=== PATIENT | male | born 1965 | race Caucasian/White ===

== ENCOUNTER 2017-12-19 08:40 | Emergency (ER) | payer OTHER ==
[2017-12-19 08:45] VITALS: BP 117/78; BMI 25.0
--- NOTE | 2017-12-19 09:04 | PDOC ---
History of Present Illness - General Chief Complaint: Cold Symptoms Stated Complaint: FEVER, COUGH Time Seen by Provider: 12/19/17 08:51 History Source: Patient Exam Limitations: No Limitations - History of Present Illness Initial Comments: CHIEF COMPLAINT: 52 y/o febrile, tachycardic male c/o body aches, fever, chills , dry cough and sore throat x 4 days. HISTORY OF PRESENT ILLNESS: The patient states the sxs started out of nowhere. He did not have the flu shot this year. He has been taking tylenol and motrin , but hasn't taken anything this morning. He denies CP, SOB, abd pain, n/v/d. Vital signs on arrival are notable for pulse of 102 secondary to temp 100.9. REVIEW OF SYSTEMS: GENERAL/CONSTITUTIONAL: +fever/chills. No weakness. No weight change. HEAD, EYES, EARS, NOSE AND THROAT: No change in vision. No ear pain or discharge. + sore throat. CARDIOVASCULAR: No chest pain or shortness of breath. RESPIRATORY: +cough. No wheezing or hemoptysis. GASTROINTESTINAL: No nausea, vomiting, diarrhea or abdominal pain GENITOURINARY: No dysuria, frequency, or change in urination. MUSCULOSKELETAL: No joint or muscle swelling or pain. No neck or back pain. SKIN: No rash or easy bruising. NEUROLOGIC: No headache, vertigo, loss of consciousness, or loss of sensation. PHYSICAL EXAM: GENERAL: The patient is awake, alert, and fully oriented, in no acute distress. He is non toxic but ill appearing. HEAD: Normal with no signs of trauma. NECK: No lymphadenopathy. ENT: Pupils equal, round and reactive to light, extraocular movements intact, sclera anicteric, conjunctiva clear. Posterior pharyngeal erythema. No tonsillar edema or exudate. Uvula midline. No ulcerations. LUNGS: Clear to auscultation bilaterally. Normal excursion. No respiratory distress or use of accessory muscles. CV: RRR, S1/S2, no MRG. Cap refill < 2 sec. ABDOMEN: Soft, non-distended, non-tender even to deep palpation, no hepatomegaly or splenomegaly, no masses. EXTREMITIES: Normal range of motion, no edema. NEUROLOGICAL: Normal speech, normal gait. CN II-XII grossly intact. PSYCH: Normal mood, normal affect. SKIN: Warm, dry, normal turgor, no rashes or lesions noted. Past History - Past Medical History Allergies/Adverse Reactions: Allergies Allergy/AdvReac Type Severity Reaction Status Date / Time No Known Allergies Allergy Verified 12/19/17 08:43 Home Medications: Ambulatory Orders NK [No Known Home Medication] 12/19/17 COPD: No - Suicide/Smoking/Psychosocial Hx Smoking History: Never smoked Information on smoking cessation initiated: No Hx Alcohol Use: No Drug/Substance Use Hx: No Substance Use Type: None *Physical Exam - Vital Signs Last Vital Signs Temp Pulse Resp BP Pulse Ox 100.9 F H 102 H 18 117/78 100 12/19/17 08:43 12/19/17 08:43 12/19/17 08:43 12/19/17 08:43 12/19/17 08:43 Medical Decision Making - Medical Decision Making A/P: 52 y/o male with signs and symptoms of the flu. NO need for flu swab as this is day 4 of symptoms he is out of the tamiflu window. Plan is as follows: 1. PO tylenol 2. Fluids Vital signs have improved. Will discharge to home with supportive care instructions and work note. Suggested he return to the ER with any worsening or concerning symptoms. The patient verbalizes understanding of all instructions, has no further questions and is awaiting discharge. *DC/Admit/Observation/Transfer Diagnosis at time of Disposition: Influenza - Discharge Dispostion Condition at time of disposition: Improved - Referrals - Patient Instructions Printed Discharge Instructions: DI for Influenza -- Adult Additional Instructions: Discharge Instructions: -You have the flu. Your symptoms could last as long as 14 days. -Alternate between 650mg of TYlenol and 600mg of Motrin every 3 hours for fever -Get lots of rest -Drink plenty of fluids -REturn to the ER with any worsening or concerning symptoms Instrucciones de descarga: -Usted tiene la gripe. Karla sntomas pueden durar hasta 14 gale. -Alterna entre 650 mg de TYlenol y 600 mg de Motrin cada 3 horas para la fiebre -Descansa mucho -Beber mucho lquido -Regresar a la lena de urgencias con cualquier empeoramiento o sntomas Print Language: JAMAICAN - Post Discharge Activity Forms/Work/School Notes: Back to Work
[2017-12-19] MEDS ORDERED: ACETAMINOPHEN 325 MG TABLET (FP) PO ONE (09:31)
[2017-12-19] MEDS ORDERED: ACETAMINOPHEN 325 MG TABLET (FP) ONE (09:32)
[2017-12-19 10:21] VITALS: PULSE 84; TEMP 99
== END 2017-12-19 10:21 | disposition home or self-care (01) ==
LOC: JERFT 08:40
DX: J11.1 Influenza due to unidentified influenza virus with other respiratory manifestations (principal)
CPT/HCPCS: 99281-25